=== PATIENT | female | born 1940 | race Caucasian/White ===

== ENCOUNTER → 2023-12-16 07:18 | Outpatient (REF) | payer OTHER, SELFPAY ==
[2023-12-16 08:59] LABS: ALT (SGPT) 18 U/L (0-35); AST (SGOT) 21 U/L (14-36); Albumin 4.1 g/dl (3.5-5.0); Alkaline Phosphatase 85 U/L (38-126); Blood Urea Nitrogen 18 mg/dl (7-17); Calcium 9.6 mg/dl (8.4-10.2); Carbon Dioxide 31 mmol/L (22-30); Chloride 105 mmol/L (98-107); Glucose 124 mg/dl (70-99); HDL Cholesterol 62 mg/dl; LDL Cholesterol, Calculated 123 mg/dl; Potassium 4.4 mmol/L (3.5-5.1); Sodium 138 mmol/L (135-145); Total Cholesterol 214 mg/dl (50-199); Triglyceride 146 mg/dl (10-149); Very Low Density Lipoprotein 29 mg/dl (0-30); eGFR > 60.00
[2023-12-16 09:21] LABS: Microalbumin, Random Urine < 0.6 mg/dl (0.6-1.7)
[2023-12-16 09:31] LABS: Glycohemoglobin (HgbA1c) 6.5 % (4.0-5.6)
== END ==
LOC: REG 07:18
PROVIDERS: ATTENDING PHYSICIAN Nurse Practitioner Adult Health
DX: E78.2 Mixed hyperlipidemia (principal); I10 Essential (primary) hypertension; E11.9 Type 2 diabetes mellitus without complications
CPT/HCPCS: 36415; 80053; 80061; 82043; 83036

== ENCOUNTER → 2024-05-23 08:09 | Outpatient (REF) | payer OTHER, SELFPAY | LOC: WDC 08:09 | PROVIDERS: ATTENDING PHYSICIAN Nurse Practitioner Adult Health | DX: Z12.31 Encounter for screening mammogram for malignant neoplasm of breast (principal) | CPT/HCPCS: 77063; 77067 ==

== ENCOUNTER → 2024-06-15 07:19 | Outpatient (REF) | payer OTHER, SELFPAY ==
[2024-06-15 10:01] LABS: ALT (SGPT) 18 U/L (0-35); AST (SGOT) 21 U/L (14-36); Albumin 4.3 g/dl (3.5-5.0); Alkaline Phosphatase 75 U/L (38-126); Blood Urea Nitrogen 21 mg/dl (7-17); Calcium 9.5 mg/dl (8.4-10.2); Carbon Dioxide 28 mmol/L (22-30); Chloride 102 mmol/L (98-107); Glucose 137 mg/dl (70-99); HDL Cholesterol 68 mg/dl; LDL Cholesterol, Calculated 97 mg/dl; Potassium 4.6 mmol/L (3.5-5.1); Sodium 142 mmol/L (135-145); Total Bilirubin 1.3 mg/dl (0.2-1.3); Total Cholesterol 185 mg/dl (50-199); Triglyceride 100 mg/dl (10-149); Very Low Density Lipoprotein 20 mg/dl (0-30); eGFR > 60.00
[2024-06-15 10:22] LABS: Glycohemoglobin (HgbA1c) 6.3 % (4.0-5.6)
== END ==
LOC: REG 07:19
PROVIDERS: ATTENDING PHYSICIAN Nurse Practitioner Adult Health
DX: E78.2 Mixed hyperlipidemia (principal); I10 Essential (primary) hypertension; E11.9 Type 2 diabetes mellitus without complications
CPT/HCPCS: 36415; 80053; 80061; 83036

== ENCOUNTER 2024-12-24 13:42 | Inpatient (IN) | payer OTHER, SELFPAY ==
[2024-12-24] VITALS (12 sets, daily range): BP systolic 128–218; BP diastolic 80–107; BMI 27.1; BMI 26.4
--- NOTE | 2024-12-24 08:53 | EDRN ---
Dr. Teixeira in room w/ pt.
--- NOTE | 2024-12-24 08:59 | ED.GENMED ---
History of Present Illness
General
Chief Complaint: Breathing Problem
Time Seen by Provider: 12/24/24 08:51
History of Present Illness
History of Present Illness:
Patient is a 84-year-old woman with remote history of breast cancer in remission, hypertension, hyperlipidemia presenting to the emergency department with shortness of breath. Patient states for the past 2 weeks she has had intermittent feeling of
chest tightness. No obvious triggers. Is not exertional. No chest pain. Position does not affected. No recent illnesses but she does state she is been having some chills and congestion. No sick contacts. No history of asthma. No smoking
history. No hemoptysis leg swelling long car rides plane rides or history of blood clots she has never had this feeling before. She states that it is intermittent and lasts a few breaths and then goes away. She did almost go the whole day
yesterday without any of the symptoms.
Past History
Past History
ED Past Medical History: Cancer (left breast in '), HTN and Hypercholesterolemia
ED Past Surgical History: Gynecological (left lumpectomy)
Social History
Tobacco: Non-smoker
Alcohol: None
Drug: None
Living: alone
Phy Exam
Physical Exam
Physical Exam:
GENERAL: in no acute distress
HEENT: normocephalic, extraocular movements intact, moist oral mucosa
NECK: normal inspection
RESPIRATORY: no respiratory distress, clear to auscultation bilaterally
CARDIOVASCULAR: regular rate and rhythm
ABDOMEN/: soft, non-distended, non-tender to palpation, no rebound or guarding
EXTREMITIES: non-tender, no edema/swelling
NEUROLOGIC: awake and alert, moves all extremities
SKIN: warm
Scores
Heart Failure Risk
Heart Failure Risk Score: Not Applicable
Course
Orders/Labs/Results
Orders:
Orders
12/24/24 08:39
EKG [Electrocardiogram (*1)] Urgent
Reason for Study: Shortness of Breath
EKG- Treatment ONCE
12/24/24 09:12
COVID-19 Antigen Urgent
Source: Nasal Swab
Complete Blood Count/With Diff Urgent
Comprehensive Metabolic Panel Urgent
D-Dimer Urgent
Troponin I Urgent
Influenza A+B Rapid Molecular Urgent
LAVONNE Source: Nasal Swab
Specimen Description:
12/24/24 09:53
CT Chest PE Study Urgent
Comment:
Reason For Exam: positive dimer
12/24/24 11:41
PTT Urgent
Comment: Obtain baseline before beginning heparin infusion if not already collected
Heparin 6,100 units IV NOW STA
Pharmacy Request to Place See Dose Instructions PO NOW STA
Discontinue all Active Warfarin orders?: Yes
Nursing to Place Non Medication Order As Directed
Physician Order: PTT 6 hours after initial start of Heparin infusion
12/24/24 11:45
Heparin 90363 Units/250 ml 25,000 units in 250 ml IV PER PROTOCOL
Weight to be used for heparin protocol in kilograms (kg):: 76.1
Protocol:: DVT/PE
PTT Goal Range to be used:: PTT 73 to 111 seconds
Order type:: Initial
INITIAL Infusion Dose (UNITS/KG/hr) & then follow protocol:: 18 units/kg/hr
Infusion Dose in UNITS/hr & then follow protocol (UNITS/hr):: 1,400
INFUSION RATE in mL/hr & then follow protocol (mL/hr):: 14
For DVT/PE algorithm, re-bolus for low PTT?: Yes
PTT less than or equal to 64 seconds:: Re-bolus 80 units/kg (max 10,000units). Increase by 300 units/hr
(+ 3mL/hr)
PTT 64.1 to 72.9 seconds:: Re-bolus 40 units/kg (max 5,000 units). Increase by 200 units/hr
(+ 2mL/hr)
PTT 73 to 111 seconds:: Target Range. No change in rate.
PTT 111.1 to 130.9 seconds:: Decrease rate by 200 units/hr (- 2 mL/hr)
PTT 131 to 199.9 seconds:: HOLD for 1 hr. Then decrease by 200 units/hr (- 2mL/hr)
PTT greater than or equal to 200 seconds:: HOLD for 2 hrs & Notify Provider. Then decrease by 300 units/hr
(- 3mL/hr)
Lab follow-up:: Each change, PTT q6h until 2 consecutive are therapeutic. Then
PTT daily.
12/24/24 12:[address] See Dose Instructions IV DIRECTED
Abnormal Lab Results
12/24/24
09:12
Abs Immat Gran (auto) 0.1 H 10^3/uL
(0-0.05)
Absolute Neuts (auto) 6.7 H 10^3/uL
(1.4-6.5)
Absolute Lymphs (auto) 1.1 L 10^3/uL
(1.2-3.4)
Immature Gran % 0.6 H %
(0-0.5)
Neutrophils % 78.3 H %
(42.2-75.2)
Lymphocytes % 12.4 L %
(20.5-51.1)
D-Dimer 0.98 H ug/mlFEU
(0.00-0.50)
Glucose 108 H mg/dl
(70-99)
12/24/24 09:12
12/24/24 09:12
Vital Signs
Initial and Last Documented VS:
Initial Vital Signs
Temp Pulse Resp BP Pulse Ox
97.5 F 86 22 218/107 96
12/24/24 08:33 12/24/24 08:33 12/24/24 08:33 12/24/24 08:33 12/24/24 08:33
Last Documented Vital Signs
Temp Pulse Resp BP Pulse Ox
97.5 F 78 19 172/89 95
12/24/24 08:33 12/24/24 11:30 12/24/24 11:30 12/24/24 11:00 12/24/24 11:30
MDM/Problems Addressed
Differential Diagnosis Includes:
Patient is a 84-year-old woman presenting to the emergency department with intermittent shortness of breath for the past 2 weeks with associated congestion and chills. Vitals are initially notable for hypertension and exam does show clear breath
sounds. The patient states he is currently not having an attack. Differential is broad but consists of PNA, malignancy, ACS. Considered PE. Will check blood work including dimer. Will obtain chest x-ray. EKG obtained, interpretation is normal
sinus rhythm.
*Critical Care Note
Total Time (30-74mins, 75-104mins- exclusive of procedures): Not Applicable
Update Note
Update Note:
Blood work notable for elevated dimer. Will proceed with CT PE.
CT PE per my interpretation with left-sided pleural effusion no saddle embolus. I did receive a critical call from radiology she does have right lower lobe pulmonary embolism with no findings of right heart strain. she also has bilateral nodules.
Patient remains hemodynamically stable. Will start heparin. Discussed with hospitalist who accepted patient to their service
ED Attending Note
-
Portions of this chart may have been created with voice recognition software.� Occasional wrong word or��sound alike� substitutions may have occurred due to the inherent limitations of voice recognition software.
Discharge Plan
Departure
Patient Disposition: Admit
Date of Disposition: 12/24/24
Time of Disposition: 11:49
Presentation/result/management discussed w/ accepting MD/DO: Hospitalist
Discharge Problem:
Pulmonary embolism
Prescriptions:
No Action
atorvastatin 20 MG tablet
20 mg PO QPM
aspirin 81 MG tablet,delayed release (DR/EC)
81 mg PO DAILY Qty: 30 0RF
acetaminophen [Tylenol] 325 mg Tablet
650 mg PO DAILYPRN PRN (Reason: mild pain)
carvedilol [Coreg] 12.5 mg Tablet
12.5 mg PO BID
cholecalciferol (vitamin D3) [Vitamin D3] 25 mcg (1,000 unit) Tablet
25 mcg PO DAILY
Referrals:
Teodoro Orlando MD [Family Provider] -
Interventions
Interventions:
*Risk Screen - Suicide Last Done: 12/24/24 09:10
*General Assessment Last Done: 12/24/24 09:10
*Neglect/Abuse Screening Last Done: 12/24/24 09:10
*ED- Fall Risk Assessment Last Done: 12/24/24 09:10
*ED COVID-19 Vaccine History Last Done: 12/24/24 09:10
ED- Cardiac Assessment Last Done: 12/24/24 09:10
ED- Pulmonary Assessment Last Done: 12/24/24 09:10
Discharge Date and Time
Print Language: GREENLANDIC
[2024-12-24 09:31] LABS: % Basophils 0.7 % (0-2); % Eosinophils 1.8 % (0-6); % Immature Granulocytes 0.6 % (0-0.5); % Lymphocytes 12.4 % (20.5-51.1); % Monocytes 6.2 % (1.7-9.3); % Neutrophils 78.3 % (42.2-75.2); Absolute Basophils 0.1 10^3/uL (0-0.2); Absolute Eosinophils 0.2 10^3/uL (0-0.7); Absolute Immature Granulocytes 0.1 10^3/uL (0-0.05); Absolute Lymphocytes 1.1 10^3/uL (1.2-3.4); Absolute Monocytes 0.5 10^3/uL (0.1-0.6); Absolute Neutrophils 6.7 10^3/uL (1.4-6.5); Hematocrit 42.3 % (37.0-47.0); Hemoglobin 14.5 g/dL (12.0-16.0); Mean Corp Hgb Conc. 34.3 g/dL (33.0-37.0); Mean Corpuscular Hgb 29.7 pg (27.0-31.0); Mean Corpuscular Volume 86.7 fL (81.0-99.0); Mean Platelet Volume 10.2 fL (7.4-10.4); Nucleated Red Blood Cells % 0 %; Platelet Count 299 10^3/uL (130-400); Red Blood Cell Count 4.88 10^6/uL (4.20-5.40); Red Cell Dist. Width 11.5 % (11.5-14.5); White Blood Cell Count 8.6 10^3/uL (4.8-10.8)
[2024-12-24 09:47] LABS: ALT (SGPT) 24 U/L (0-35); AST (SGOT) 19 U/L (14-36); Albumin 3.8 g/dl (3.5-5.0); Alkaline Phosphatase 90 U/L (38-126); Blood Urea Nitrogen 15 mg/dl (7-17); Calcium 9.8 mg/dl (8.4-10.2); Carbon Dioxide 30 mmol/L (22-30); Chloride 105 mmol/L (98-107); Estimated Creatinine Clearance 58 ml/min; Glucose 108 mg/dl (70-99); Potassium 4.4 mmol/L (3.5-5.1); Sodium 142 mmol/L (135-145); Total Bilirubin 0.8 mg/dl (0.2-1.3); Total Protein 6.8 g/dl (6.3-8.2); eGFR > 60.00
[2024-12-24 09:48] LABS: D-Dimer 0.98 ug/mlFEU (0.00-0.50)
[2024-12-24 09:55] LABS: Troponin I < 0.012 ng/ml
[2024-12-24 10:01] LABS: COVID-19 Antigen Negative (Negative)
--- NOTE | 2024-12-24 11:44 | EDRN ---
Dr. Teixeira in room w/pt at this time.
--- NOTE | 2024-12-24 11:53 | EDRN ---
Pharmacy called for heparin infusion order at this time.
--- NOTE | 2024-12-24 12:10 | EDRN ---
Dr. Martinez in room w/ pt.
--- NOTE | 2024-12-24 12:16 | HPS.HSE ---
Family Physician
-
Family Physician: Sunil Orlando
Chief Complaint
-
shortness of breath
History of Present Illness
84-year-old female past medical history of left breast cancer status post lumpectomy in remission, hypertension, hyperlipidemia, SVT, presenting with shortness of breath. The past 2 weeks she has been having intermittent chest tightness sometimes
in her back as well. Not exertional. No obvious triggers. She has slight cough.. No sick contacts. Denies any leg swelling, recent immobility, long car rides or flights, history of blood clots. Does sometimes have some aches in her left leg.
She checks her blood pressure every couple of days and her blood pressure is usually under 130 but sometimes up to 160.
Denies smoking. Denies alcohol use.
Medical History
Past Medical History
Past Medical History: Reports Other ( left breast cancer status post lumpectomy in remission, hypertension, hyperlipidemia, SVT)
Past Surgical History: Reports None
Social History
Tobacco: Non-smoker
Alcohol: None
Drug: None
Family History
Family History: Not pertinent
Allergies / Home Medications
Allergies reflects when Allergies were last updated in [employer].
Home Medications with original date entered in [employer]
Allergy/Medication List:
Allergies
Allergy/AdvReac Type Severity Reaction Status Date / Time
No Known Allergies Allergy Verified 02/04/22 15:47
Home Medications
atorvastatin 20 mg tablet 20 mg PO QPM 11/26/12
aspirin 81 mg tablet,delayed release 81 mg PO DAILY #30 tabs 02/06/22
acetaminophen 325 mg tablet (Tylenol) 650 mg PO DAILYPRN PRN mild pain 12/24/24
carvedilol 12.5 mg tablet (Coreg) 12.5 mg PO BID 12/24/24
cholecalciferol (vitamin D3) 25 mcg (1,000 unit) tablet (Vitamin D3) 25 mcg PO DAILY 12/24/24
Review of Systems
-
History Source: Patient
A 12 point ROS was completed and negative except as noted: Yes
Constitutional: Reports No Symptoms
EENT: Reports No Symptoms
Respiratory: Reports See HPI
Cardiac: Reports See HPI
Abdomen/GI: Reports No Symptoms
: Reports No Symptoms
Musculoskeletal: Reports No Symptoms
Skin: Reports No Symptoms
Neurological: Reports No Symptoms
Endocrine: Reports No Symptoms
Hematologic/Lymphatic: Reports No Symptoms
Psych: Reports No Symptoms
Physical Exam
Vital Signs
Vital Signs
Temp Pulse Resp BP Pulse Ox
97.5 F 78 19 172/89 95
12/24/24 08:33 12/24/24 11:30 12/24/24 11:30 12/24/24 11:00 12/24/24 11:30
Physical Exam
General: Well Developed, Well Nourished and No Apparent Distress
HEENT: NormoCephalic, Moist mucous membranes and Atraumatic
Respiratory: Clear
Cardiac: S1/S2 and Regular Rhythm; No Murmur or Rub
GI: Soft, Non Tender, Non Distended and Normal Bowel Sounds; No Organomegaly
Rectal: Deferred by Provider
Musculoskeletal: No Clubbing, No Cyanosis and No Edema
Skin: No Rash
Neuro: Nonfocal/grossly intact
Laboratory Results
-
12/24/24 09:12
12/24/24 09:12
Laboratory Results
Total Bilirubin 0.8 mg/dl (0.2-1.3) 12/24/24 09:12
AST 19 U/L (14-36) 12/24/24 09:12
ALT 24 U/L (0-35) 12/24/24 09:12
Alkaline Phosphatase 90 U/L (38-126) 12/24/24 09:12
Troponin I < 0.012 ng/ml 12/24/24 09:12
Data Reviewed
-
Lab Data: Labs Reviewed by me
Old Records: Reviewed
Impression/Plan
-
IMPRESSION:
PLAN:
# Right lower lobe pulmonary embolism with likely pulmonary infarct likely related to breast cancer history
- CT PE shows pulmonary embolism predominantly right lower lobe branches, small left pleural effusion with left lower lobe subsegmental atelectasis, several small bilateral predominantly subpleural/peripheral nodular opacities likely atelectasis
versus pulmonary infarct
- Heparin drip
- Check venous ultrasound, echo
- Hold aspirin while on anticoagulation
Hypertensive urgency
- Continue Coreg
- As needed hydralazine
Left breast cancer status post lumpectomy
- In remission for several years
History of SVT
Hyperlipidemia
- Continue statin
DNR/DNI
DVT prophylaxis�heparin drip
Regular diet
[2024-12-24] MEDS: HEPARIN 6100 UNITS IV (12:23)
[2024-12-24] MEDS: HEPARIN 25000 UNITS/250 ML IV (12:25)
[2024-12-24 12:35] LABS: APTT 28.1 Sec (23.4-35.0)
[2024-12-24] MEDS: APRESOLINE 5 MG IV (14:46)
[2024-12-24 17:26] LABS: Troponin I < 0.012 ng/ml
[2024-12-24] MEDS: LIPITOR 20 MG PO (18:08)
[2024-12-24] MEDS: APRESOLINE 10 MG IV (18:26)
--- NOTE | 2024-12-24 18:35 | PTCARENOTE ---
Addendum entered by Corrine John RN 12/24/24 19:19:
Pt does not have advanced directive. When asked during admission questions, pt stated that she 'wouldn't want all that' in reference to CPR. MD notified that pt is thinking about changing code status.
Original Note:
Pt received from ED. Walked to bed with minimal assistance from stretcher to 317-2. Heparin drip infusing @14 mls/hr. Pt SOB with exertion. BP initially elevated on admission 180/99. PRN 5mg IV hydralazine administered. BP rechecked at 189/103. MD
notified. Order changed to 10mg IV hydralazine PRN. MD ordered to give now. Medication administered. Pt is AAOx3 and very pleasant, resting comfortably in bed. Visitor @bedside. Will continue to monitor.
[2024-12-24 18:38] LABS: APTT 134.1 Sec (23.4-35.0)
[2024-12-24] MEDS: COREG 12.5 MG PO (20:47)
[2024-12-24 22:42] LABS: Troponin I < 0.012 ng/ml
[2024-12-25 02:45] LABS: APTT 61.6 Sec (23.4-35.0)
[2024-12-25 03:00] VITALS: BP 160/78
[2024-12-25 03:08] LABS: Troponin I < 0.012 ng/ml
[2024-12-25] MEDS: HEPARIN 6100 UNITS IV (03:13)
--- NOTE | 2024-12-25 07:19 | W.PN.HOSP.TC ---
Today's Communication/Plan
-
Continue Heparin Drip
Case Management pricing for Eliquis
Assessment / Plan
Assessment / Plan
Physical Exam
General: Well Developed, Well Nourished and No Apparent Distress
HEENT: NormoCephalic, Moist mucous membranes and Atraumatic
Respiratory: Clear
Cardiac: S1/S2 and Regular Rhythm
GI: Soft, Non Tender, Non Distended and Normal Bowel Sounds
Musculoskeletal: No Cyanosis and No Edema
Skin: Warm. Dry.
Neuro: AAOx3. Nonfocal/grossly intact
Assessment/Plan
84-year-old female past medical history of left breast cancer status post lumpectomy in remission, hypertension, hyperlipidemia, SVT who presented with shortness of breath. The past 2 weeks she had been having intermittent chest tightness sometimes
in her back as well. Not exertional. No obvious triggers. Slight cough. No sick contacts. Denied any leg swelling, recent immobility, long car rides or flights, history of blood clots. Does sometimes have some aches in her left leg.
# Right lower lobe pulmonary embolism with likely pulmonary infarct likely related to breast cancer history
- CT PE shows pulmonary embolism predominantly right lower lobe branches, small left pleural effusion with left lower lobe subsegmental atelectasis, several small bilateral predominantly subpleural/peripheral nodular opacities likely atelectasis
versus pulmonary infarct
- Continue Heparin Drip
- Venous ultrasound with no DVT
- Hold aspirin while on anticoagulation
#Several small bilateral predominantly subpleural/peripheral nodular opacities, largest measuring 1.9 cm in the left upper lobe
-Malignancy?
-Consulted pulmonary
Hypertensive urgency
- Continue Coreg
- As needed hydralazine
Left breast cancer status post lumpectomy
- In remission for several years
History of SVT
Hyperlipidemia
- Continue statin
DNR/DNI
DVT prophylaxis�heparin drip
Regular diet
Anticipated Discharge: 24 - 48 hours
Subjective/Interval History
-
Date of Service: December 25, 2024
Patient was seen and examined. She reported feeling better, denied any new symptoms or complaints.
Objective Data
-
Labs:
Laboratory Results
12/25/24 12/25/24 12/25/24
02:08 06:00 09:20
WBC Pending
Hgb Pending
Hct Pending
Plt Count Pending
APTT 61.6 H Pending
Sodium Pending
Potassium Pending
Chloride Pending
Carbon Dioxide Pending
BUN Pending
Creatinine Pending
Glucose Pending
Calcium Pending
Total Bilirubin Pending
AST Pending
ALT Pending
Alkaline Phosphatase Pending
Vital Signs:
Vital Signs
Temp Pulse Resp BP Pulse Ox
98.1 F 75 18 160/78 93
12/25/24 03:00 12/25/24 03:00 12/25/24 03:00 12/25/24 03:00 12/25/24 03:00
I&O
12/24/24 12/25/24 12/26/24
06:59 06:59 06:59
Intake Total 720 / 720 350 / 350
Balance 720 / 720 350 / 350
[2024-12-25 07:29] VITALS: BP 158/85
[2024-12-25] MEDS: HEPARIN 25000 UNITS/250 ML IV (08:46)
[2024-12-25] MEDS: COREG 12.5 MG PO ×2 (08:51→21:51)
[2024-12-25] MEDS: VITAMIN D3 (cholecalciferol) 25 MCG PO (08:53)
[2024-12-25 09:33] LABS: % Basophils 0.7 % (0-2); % Eosinophils 0.7 % (0-6); % Immature Granulocytes 0.5 % (0-0.5); % Lymphocytes 16.1 % (20.5-51.1); % Monocytes 5.7 % (1.7-9.3); % Neutrophils 76.3 % (42.2-75.2); Absolute Basophils 0.1 10^3/uL (0-0.2); Absolute Eosinophils 0.1 10^3/uL (0-0.7); Absolute Lymphocytes 1.2 10^3/uL (1.2-3.4); Absolute Monocytes 0.4 10^3/uL (0.1-0.6); Absolute Neutrophils 5.8 10^3/uL (1.4-6.5); Hematocrit 42.8 % (37.0-47.0); Hemoglobin 14.9 g/dL (12.0-16.0); Mean Corp Hgb Conc. 34.8 g/dL (33.0-37.0); Mean Corpuscular Hgb 30.1 pg (27.0-31.0); Mean Corpuscular Volume 86.5 fL (81.0-99.0); Mean Platelet Volume 9.9 fL (7.4-10.4); Nucleated Red Blood Cells % 0 %; Platelet Count 305 10^3/uL (130-400); Red Blood Cell Count 4.95 10^6/uL (4.20-5.40); Red Cell Dist. Width 11.9 % (11.5-14.5); White Blood Cell Count 7.5 10^3/uL (4.8-10.8)
[2024-12-25 09:46] LABS: APTT 147.7 Sec (23.4-35.0)
[2024-12-25 09:52] LABS: ALT (SGPT) 21 U/L (0-35); AST (SGOT) 18 U/L (14-36); Albumin 4.1 g/dl (3.5-5.0); Alkaline Phosphatase 104 U/L (38-126); Blood Urea Nitrogen 15 mg/dl (7-17); Calcium 9.3 mg/dl (8.4-10.2); Carbon Dioxide 27 mmol/L (22-30); Chloride 105 mmol/L (98-107); Estimated Creatinine Clearance 58 ml/min; Glucose 145 mg/dl (70-99); Potassium 4.1 mmol/L (3.5-5.1); Sodium 141 mmol/L (135-145); Total Bilirubin 0.9 mg/dl (0.2-1.3); Total Protein 7.2 g/dl (6.3-8.2); eGFR > 60.00
--- NOTE | 2024-12-25 11:15 | CM ---
Addendum entered by Meghan Louis 12/25/24 16:31:
CM consult for pricing of Eliquis
Called [employer] [facility]/member [facility] [phone] spoke with Laura
stated she needed to call the patient before giving cost to CM.
Await return call from Laura for pricing
Also called [facility] & pharmacist would not give cost without script
Original Note:
Patient seen at bedside
IA completed
Dx: PE
on Heparin gtt
PMH: left breast cancer lumpectomy in remission, hypertension, hyperlipidemia, SVT,
Lives alone in a 2 story home, 3 steps to enter, flight of stairs bed/bath
PLOF: independent, uses cane outside
DME: cane
Denies VN/has had outpatient therapy at in past
PCP: Sunil Orlando
Pharmacy: [facility], [place]
PLAN: home, anticipate VN
[2024-12-25 11:30] VITALS: BP 155/74
[2024-12-25 15:41] VITALS: BP 162/88
[2024-12-25] MEDS: LIPITOR 20 MG PO (17:17)
[2024-12-25 17:42] LABS: APTT 77.4 Sec (23.4-35.0)
[2024-12-25 19:15] VITALS: BP 137/89
[2024-12-25 23:55] VITALS: BP 139/71
[2024-12-26] VITALS (7 sets, daily range): BP systolic 133–178; BP diastolic 71–98
[2024-12-26 00:09] LABS: APTT 60.9 Sec (23.4-35.0)
[2024-12-26] MEDS: HEPARIN 6100 UNITS IV (00:47)
[2024-12-26] MEDS: HEPARIN 25000 UNITS/250 ML IV (04:46)
[2024-12-26 07:26] LABS: Hematocrit 41.9 % (37.0-47.0); Hemoglobin 14.7 g/dL (12.0-16.0); Mean Corp Hgb Conc. 35.1 g/dL (33.0-37.0); Mean Corpuscular Hgb 29.8 pg (27.0-31.0); Mean Platelet Volume 10.8 fL (7.4-10.4); Platelet Count 246 10^3/uL (130-400); Red Blood Cell Count 4.93 10^6/uL (4.20-5.40); Red Cell Dist. Width 11.9 % (11.5-14.5); White Blood Cell Count 7.2 10^3/uL (4.8-10.8)
[2024-12-26 08:10] LABS: Blood Urea Nitrogen 21 mg/dl (7-17); Calcium 9.5 mg/dl (8.4-10.2); Carbon Dioxide 25 mmol/L (22-30); Chloride 108 mmol/L (98-107); Estimated Creatinine Clearance 68 ml/min; Glucose 147 mg/dl (70-99); Potassium 4.7 mmol/L (3.5-5.1); Sodium 141 mmol/L (135-145); eGFR > 60.00
[2024-12-26 08:50] LABS: APTT 187.9 Sec (23.4-35.0)
[2024-12-26] MEDS: COREG 12.5 MG PO (09:58)
[2024-12-26] MEDS: VITAMIN D3 (cholecalciferol) 25 MCG PO (09:59)
--- NOTE | 2024-12-26 10:30 | CM ---
Addendum entered by Meghan Louis 12/26/24 15:44:
Patient seen by PT no needs
PLAN: home no needs
friend to transport
Original Note:
spoke with patient regarding Eliquis & CM calling [employer] ins. & they were unable to give cost to CM
coupons given to patient & brochure coverage information assistance
spoke with hospitalist
IMM explained & signed. In chart
PLAN: PT eval pending
--- NOTE | 2024-12-26 10:33 | PTCARENOTE ---
Heparin restarted at 1400 units at 1030. Repeat PTT for 1630
--- NOTE | 2024-12-26 12:47 | W.PN.HOSP.TC ---
Today's Communication/Plan
-
Discharge today
Assessment / Plan
Assessment / Plan
Physical Exam
General: Well Developed, Well Nourished and No Apparent Distress
HEENT: NormoCephalic, Moist mucous membranes and Atraumatic
Respiratory: Clear
Cardiac: S1/S2 and Regular Rhythm
GI: Soft, Non Tender, Non Distended and Normal Bowel Sounds
Musculoskeletal: No Cyanosis and No Edema
Skin: Warm. Dry.
Neuro: AAOx3. Nonfocal/grossly intact
Assessment/Plan
84-year-old female past medical history of left breast cancer status post lumpectomy in remission, hypertension, hyperlipidemia, SVT who presented with shortness of breath. The past 2 weeks she had been having intermittent chest tightness sometimes
in her back as well. Not exertional. No obvious triggers. Slight cough. No sick contacts. Denied any leg swelling, recent immobility, long car rides or flights, history of blood clots. Does sometimes have some aches in her left leg.
# Right lower lobe pulmonary embolism -- seemingly unprovoked -- with likely pulmonary infarct likely with risk factor being breast cancer history
# Left hemidiaphragm elevation
# Left upper lobe opacity-unclear if this is a pulmonary nodule versus a pulmonary infarct
- CT PE shows pulmonary embolism predominantly right lower lobe branches, small left pleural effusion with left lower lobe subsegmental atelectasis, several small bilateral predominantly subpleural/peripheral nodular opacities likely atelectasis
versus pulmonary infarct
- Continue Heparin Drip
- On discharge, will do Eliquis
- Venous ultrasound with no DVT
- Hold aspirin while on anticoagulation -- discuss with your primary care physician if an when to resume the Aspirin
- Follow-up echocardiogram outpatient
- Pulmonary follow-up/oncology follow-up; PET scan may be necessary -- Pulmonary follow-up in 2 weeks
#Several small bilateral predominantly subpleural/peripheral nodular opacities, largest measuring 1.9 cm in the left upper lobe
-Malignancy?
-Consulted pulmonary
#Hypertensive urgency
- Continue Coreg
- As needed hydralazine
#History of breast cancer status postlumpectomy in remission. 12 years ago. Considered cured.
He was seen by Dr. Roman in the past and discharged after 10 years
#Left breast cancer status post lumpectomy
- In remission for several years
#History of SVT
#Hyperlipidemia
- Continue statin
DNR/DNI
DVT prophylaxis�heparin drip
Regular diet
More than 30 minutes spent in discharge including
Final examination of the patient
Summarizing hospital stay
Instructions for continuing care to all relevant caregivers
Preparation of discharge records, prescriptions, and referral forms
Total time spent (in minutes): 39
Anticipated Discharge: Today
Subjective/Interval History
-
Date of Service: December 26, 2024
Patient was seen and examined. She denied any chest pain, shortness of breath or any other symptoms or complaints.
Objective Data
-
Labs:
Laboratory Results
12/26/24 12/26/24
07:05 16:30
WBC 7.2
Hgb 14.7
Hct 41.9
Plt Count 246
APTT 187.9 H* Pending
Sodium 141
Potassium 4.7
Chloride 108 H
Carbon Dioxide 25
BUN 21 H
Creatinine 0.6
Glucose 147 H
Calcium 9.5
Vital Signs:
Vital Signs
Temp Pulse Resp BP Pulse Ox
98.1 F 73 18 135/75 94
12/26/24 11:33 12/26/24 11:33 12/26/24 11:33 12/26/24 11:33 12/26/24 11:33
I&O
12/25/24 12/26/24 12/27/24
06:59 06:59 06:59
Intake Total 720 / 720 700 / 700
Balance 720 / 720 700 / 700
--- NOTE | 2024-12-26 13:03 | CON.PUL ---
Consultation
Consultation Request
Date/Time Consultation Requested: 12/26/2024
Date/Time Consultation Performed: 12/26/2024
Requesting Provider: Dr. White
Performing Provider: Dr. Rajat Ngo
Reason for Consultation: Pulmonary embolism
Medical History
-
Chief Complaint: Shortness of breath
History of Present Illness:
84-year-old woman with past medical history significant for left breast cancer status postlumpectomy on remission, hypertension, hyperlipidemia, SVT, presented to the emergency room complaining of shortness of breath. Symptoms started about 2 weeks
with intermittent chest tightness and back discomfort as well. Reports mild coughing. Denies symptoms suggestive of infection. Denies recent long distance travel, she has been in her usual state of health.
Denies prior history of clots.
She is a non-smoker.
CT chest demonstrated pulmonary embolism with possible associated infarct.
Pulmonary was consulted for evaluation
Past Medical History
Past Medical History: Other ( see assessment and plan)
Social History
Tobacco: Non-smoker
Alcohol: None
Drug: None
Family History
Family History: Reviewed & Not Pertinent
Allergies / Home Medications
Allergies
Allergy/AdvReac Type Severity Reaction Status Date / Time
No Known Allergies Allergy Verified 02/04/22 15:47
Home Medications
�Medication �Instructions �Recorded �Confirmed �Last Taken �Type
atorvastatin 20 mg tablet 20 mg PO QPM High Cholesterol 11/26/12 12/24/24 11/25/12 History
acetaminophen 325 mg tablet 650 mg PO DAILYPRN PRN mild pain 12/24/24 12/24/24 12/23/24 History
(Tylenol)
carvedilol 12.5 mg tablet (Coreg) 12.5 mg PO BID Blood Pressure 12/24/24 12/24/24 12/24/24 History
cholecalciferol (vitamin D3) 25 25 mcg PO DAILY Supplement 12/24/24 12/24/24 Unknown History
mcg (1,000 unit) tablet (Vitamin
D3)
aspirin 81 mg tablet,delayed 81 mg PO DAILY Blood Clot 12/25/24 12/24/24 3 Days Ago History
release Prevention/Tx ~12/21/24
Review of Systems
-
History Source: Patient
All other systems: Negative unless noted
Vitals / Labs / Diagnostic Testing
Vital Signs
Temp Pulse Resp BP Pulse Ox
98.1 F 73 18 135/75 94
12/26/24 11:33 12/26/24 11:33 12/26/24 11:33 12/26/24 11:33 12/26/24 11:33
Lab Data
12/26/24 07:05
12/26/24 07:05
Laboratory Results
12/25/24 12/25/24 12/26/24
17:23 23:49 07:05
APTT 77.4 H 60.9 H 187.9 H*
Microbiology
12/24/24 09:12 Nasal Swab Influenza Types A & B (KEN) - Final
Negative for Influenza A & B, NAAT
Negative results must be combined with clinical observations
and patient history.
Nucleic Acid Amplification test (NAAT)performed on the
[employer] NOW platform.
Diagnostic Testing:
Physical Exam
-
HEENT: Normocephalic
Cardiovascular: S1/S2
Respiratory: Non-Labored Respirations
GI: Non Distended
Neurology: AO x 3 and No Motor Deficits
Skin: Warm
General: Respiratory Distress and Comfortable
Assessment
-
84-year-old with past medical history noted. Admitted with shortness of breath. Found to have a right lower lobe pulmonary embolism. Also left upper lobe lung nodule. We were consulted for evaluation.
Patient currently asymptomatic.
Hemodynamically stable. Not on oxygen.
Acute pulmonary embolism pulmonary-similar provoked.
Risk factor breast cancer
CT chest: Right lower lobe pulmonary embolism. No evidence for RV strain.
Left hemidiaphragm elevation.
Left upper lobe opacity-unclear if this is a pulmonary nodule versus a pulmonary infarct.
Lower extremity Doppler 12/25/2024: No evidence for DVT.
Conditions present prior admission:
History of breast cancer status postlumpectomy in remission. 12 years ago. Considered cured.
He was seen by Dr. Roman in the past and discharged after 10 years
Hypertension
Hyperlipidemia
SVT
DNR/DNI
Assessment and plan:
Acute pulmonary embolism: Seemingly unprovoked.
Patient has history of breast cancer.
Hemodynamically stable
Not tachycardic
Not hypoxemic
No evidence for DVT on lower extremity Dopplers
Started on IV anticoagulation-okay to transition to oral.
Doubt any significant RV strain
- Echocardiogram has been ordered. Unlikely to guide changer at this point.
-
More concerning left upper lobe 1.9 cm pulmonary nodule. Doubt pulmonary infarct as there is no significant pulmonary embolism noted on the left.
Recommend pulmonary follow-up/oncology follow-up.
PET scan may be necessary. Will discuss in the outpatient setting.
-
Recommend short-term follow-up with pulmonary office in the next 2 weeks.
-
Okay to discharge from my perspective on anticoagulation. Likely indefinitely.
== END 2024-12-26 16:26 | disposition home or self-care (01) | DRG 176 ==
LOC: 3 WEST ACU 13:42
PROVIDERS: ADMITTING PHYSICIAN Hospitalist; ATTENDING PHYSICIAN Hospitalist; EMERGENCY PHYSICIAN Student in an Organized Health Care Education/Training Program; FAMILY PHYSICIAN Internal Medicine; OTHER PHYSICIAN Internal Medicine Critical Care Medicine
DX: I26.99 Other pulmonary embolism without acute cor pulmonale (principal); I47.10 Supraventricular tachycardia, unspecified; J98.11 Atelectasis; I16.0 Hypertensive urgency; Z66 Do not resuscitate; E78.00 Pure hypercholesterolemia, unspecified; I10 Essential (primary) hypertension; Z85.3 Personal history of malignant neoplasm of breast; Z11.52 Encounter for screening for COVID-19
CPT/HCPCS: 71275; 80048; 80053; 84484; 85025; 85027; 85379; 85730; 87502; 87811; 93005; 93306; 93970; 97162; 99285; Q9950; Q9967

== ENCOUNTER 2024-12-27 18:05 | Emergency (ER) | payer OTHER, SELFPAY ==
[2024-12-27 18:09] VITALS: BP 190/83; BMI 27.4
[2024-12-27 18:24] LABS: % Basophils 0.7 % (0-2); % Eosinophils 3.5 % (0-6); % Immature Granulocytes 0.8 % (0-0.5); % Lymphocytes 15.3 % (20.5-51.1); % Monocytes 6.6 % (1.7-9.3); % Neutrophils 73.1 % (42.2-75.2); Absolute Basophils 0.1 10^3/uL (0-0.2); Absolute Eosinophils 0.3 10^3/uL (0-0.7); Absolute Immature Granulocytes 0.1 10^3/uL (0-0.05); Absolute Lymphocytes 1.1 10^3/uL (1.2-3.4); Absolute Monocytes 0.5 10^3/uL (0.1-0.6); Absolute Neutrophils 5.2 10^3/uL (1.4-6.5); Hematocrit 39.9 % (37.0-47.0); Hemoglobin 13.9 g/dL (12.0-16.0); Mean Corp Hgb Conc. 34.8 g/dL (33.0-37.0); Mean Corpuscular Volume 86.2 fL (81.0-99.0); Mean Platelet Volume 9.8 fL (7.4-10.4); Nucleated Red Blood Cells % 0 %; Platelet Count 274 10^3/uL (130-400); Red Blood Cell Count 4.63 10^6/uL (4.20-5.40); Red Cell Dist. Width 11.9 % (11.5-14.5); White Blood Cell Count 7.1 10^3/uL (4.8-10.8)
[2024-12-27 18:40] LABS: Blood Urea Nitrogen 23 mg/dl (7-17); Calcium 9.2 mg/dl (8.4-10.2); Carbon Dioxide 27 mmol/L (22-30); Chloride 105 mmol/L (98-107); Estimated Creatinine Clearance 65 ml/min; Glucose 198 mg/dl (70-99); Sodium 138 mmol/L (135-145); eGFR > 60.00
--- NOTE | 2024-12-27 18:44 | ED.GENMED ---
History of Present Illness
General
Chief Complaint: Abdominal Symptoms
Source: patient, ambulance crew and other (Neighbor who states patient fell on the couch)
Exam Limitations: none
Time Seen by Provider: 12/27/24 18:09
Nursing documentation reviewed up to this point in time: agreed with
History of Present Illness
History of Present Illness:
84-year-old female presents emergency department due to feeling weak, dizzy and vomiting. She vomited en route, and states she now feels better. She was discharged yesterday due to a PE. She was started on Eliquis in the hospital. Denies
headache. She states she fell down on the couch.
Past History
Past History
ED Past Medical History: Cancer (left breast in ), HTN, Hypercholesterolemia and Other (Pulmonary embolism)
ED Past Surgical History: Gynecological (left lumpectomy)
Social History
Tobacco: Non-smoker
Alcohol: None
Drug: None
Living: alone
Review of Systems
Review of Systems
Allergies reviewed?: Yes
All Other Systems: Not applicable
Constitutional: Reports no symptoms
EENT: Reports no symptoms
Respiratory: Reports no symptoms
Cardiac: Reports no symptoms
ABD/GI: Reports nausea and vomiting; Denies abdominal pain
: Reports no symptoms
Musculoskeletal: Reports no symptoms
Skin: Reports no symptoms
Neurological: Reports dizzy
Endocrine: Reports no symptoms
Hematologic/Lymphatic: Reports no symptoms
Psychiatric: Reports no symptoms
Phy Exam
Physical Exam
Physical Exam:
Physical Exam
General: no apparent distress, not acutely ill
Neck: supple. no meningeal signs. normal posterior pharynx
Heart: s1/s2 regular rate and rhythm, no murmur. equal radial
pulses.
HEENT: Pupils equal round reactive to light, EOMI
Lungs: no acute respiratory distress. clear bilaterally
Abdomen: normal bowel sounds. not tender. no CVAT
Neuro: alert and oriented. no focal neurological deficits cranial nerves II through XII intact
Skin: no rash
Psychiatric: well kept. interactive and cooperative
Extremities: no edema. no calf tenderness. negative homans. good distal pulses
Course
Orders/Labs/Results
Orders:
Orders
12/27/24 18:16
Electrocardiogram (*1) Urgent
Reason for Study: Fatigue / Weakness
EKG- Treatment ONCE
12/27/24 18:17
Basic Metabolic Panel Urgent
Complete Blood Count/With Diff Urgent
Troponin I Urgent
12/27/24 18:38
CT Head W/o Iv Contrast Urgent
Comment:
Reason For Exam: dizziness, vomiting
Abnormal Lab Results
12/27/24
18:17
Abs Immat Gran (auto) 0.1 H 10^3/uL
(0-0.05)
Absolute Lymphs (auto) 1.1 L 10^3/uL
(1.2-3.4)
Immature Gran % 0.8 H %
(0-0.5)
Lymphocytes % 15.3 L %
(20.5-51.1)
BUN 23 H mg/dl
(7-17)
Glucose 198 H mg/dl
(70-99)
12/27/24 18:17
12/27/24 18:17
Vital Signs
Initial and Last Documented VS:
Initial Vital Signs
Temp Pulse Resp BP Pulse Ox
97.6 F 72 15 190/83 94
12/27/24 18:09 12/27/24 18:09 12/27/24 18:09 12/27/24 18:09 12/27/24 18:09
Last Documented Vital Signs
Temp Pulse Resp BP Pulse Ox
97.6 F 74 28 180/76 94
12/27/24 18:09 12/27/24 20:00 12/27/24 20:00 12/27/24 20:00 12/27/24 20:48
MDM/Problems Addressed
Differential Diagnosis Includes:
Intracranial hemorrhage
MDM/Problems Addressed:
84-year-old female with dizziness, likely vertigo. No signs of CVA. Patient's symptoms improved after observation in the ED.
Chronic conditions affecting care: HTN
Acute Exacerbation and/or Progression of Chronic Illness: HTN
*Radiology
Radiology exam reviewed: radiology read reviewed (CT head no acute findings)
*Pulse Oximetry
Patient hypoxic: no
*EKG
Interpreted by ED Provider?: Yes
EKG Intrepretation Date: 12/27/24
EKG Intrepretation Time: 18:25
Interpretation: abnormal
Comparison EKG: no comparison EKG present
Heart Rate: 72
Rate: normal
Rhythm: sinus
Sheldon: normal axis
Interval: normal interval
QRS Pattern: normal QRS
Ischemia: no ischemia
*Associate Attorney Interpretation
Rate: normal
Interpretation: normal
Heart Rate: 72
Rhythm: sinus
*Critical Care Note
Total Time (30-74mins, 75-104mins- exclusive of procedures): Not Applicable
Patient Management
Social determinants of health affecting care: Living situation and Strong social support
Escalation/DeEscalation of care consider admission/obs:
Admit not indicated
ED Attending Note
-
Portions of this chart may have been created with voice recognition software.� Occasional wrong word or��sound alike� substitutions may have occurred due to the inherent limitations of voice recognition software.
Discharge Plan
Departure
Patient Disposition: Home (Routine Discharge)
Date of Disposition: 12/27/24
Time of Disposition: 20:30
Patient with high blood pressure during this ER visit?: Yes
Condition: Good
Discharge Problem:
Dizziness
Instructions: Vertigo (a type of dizziness), Nausea and Vomiting, Adult (DC), BLOOD PRESSURE
Prescriptions:
New
meclizine 25 mg tablet
25 mg PO TID PRN (Reason: dizziness) Qty: 10 0RF
No Action
atorvastatin 20 MG tablet
20 mg PO QPM
carvedilol [Coreg] 12.5 mg Tablet
12.5 mg PO BID
cholecalciferol (vitamin D3) [Vitamin D3] 25 mcg (1,000 unit) Tablet
25 mcg PO DAILY
Eliquis 5 mg tablet
See Rx Instructions .ROUTE .COMPLEX Qty: 240 0RF
Rx Instructions:
10 mg BID x 7 days, followed by 5 mg BID
Referrals:
Reji Rocha DO [Family Provider] - Call in 1-3 days for appt
Interventions
Interventions:
*Risk Screen - Suicide Last Done: 12/27/24 18:09
*General Assessment Last Done: 12/27/24 18:09
*Neglect/Abuse Screening Last Done: 12/27/24 18:09
*ED- Fall Risk Assessment Last Done: 12/27/24 18:09
*ED COVID-19 Vaccine History Last Done: 12/27/24 18:09
*Nursing Disposition Last Done: 12/27/24 20:48
LP-Bdusft-Ziuclcufvp Assessment Last Done: 12/27/24 19:15
Discharge Date and Time
Discharge Date/Time: 12/27/24 20:49
Print Language: SLOVAK
[2024-12-27 18:49] LABS: Troponin I < 0.012 ng/ml
[2024-12-27 19:00] VITALS: BP 189/88
[2024-12-27 20:00] VITALS: BP 180/76
== END 2024-12-27 20:49 | disposition home or self-care (01) ==
LOC: EMR 18:05
PROVIDERS: EMERGENCY PHYSICIAN Emergency Medicine; FAMILY PHYSICIAN Student in an Organized Health Care Education/Training Program
DX: R42 Dizziness and giddiness (principal); R11.2 Nausea with vomiting, unspecified; E78.00 Pure hypercholesterolemia, unspecified; I10 Essential (primary) hypertension; Z79.01 Long term (current) use of anticoagulants; Z86.711 Personal history of pulmonary embolism
CPT/HCPCS: 99284; 70450; 80048; 84484; 85025; 93005

== ENCOUNTER → 2025-01-11 08:56 | Outpatient (REF) | payer OTHER, SELFPAY | LOC: REG 08:56 | PROVIDERS: ATTENDING PHYSICIAN Internal Medicine | DX: Z86.711 Personal history of pulmonary embolism (principal) | CPT/HCPCS: 36415; 81241 ==

== ENCOUNTER → 2025-01-22 14:17 | Outpatient (REF) | payer OTHER, SELFPAY | LOC: RAD 14:17 | PROVIDERS: ATTENDING PHYSICIAN Nurse Practitioner Adult Health; FAMILY PHYSICIAN Internal Medicine | DX: J90 Pleural effusion, not elsewhere classified (principal) | CPT/HCPCS: 76604 ==

== ENCOUNTER → 2025-01-25 08:51 | Outpatient (REF) | payer OTHER, SELFPAY | LOC: RAD 08:51 | PROVIDERS: ATTENDING PHYSICIAN Nurse Practitioner Adult Health; FAMILY PHYSICIAN Internal Medicine | DX: I26.93 Single subsegmental thrombotic pulmonary embolism without acute cor pulmonale (principal); J90 Pleural effusion, not elsewhere classified; R91.8 Other nonspecific abnormal finding of lung field; Z85.3 Personal history of malignant neoplasm of breast | CPT/HCPCS: 71250 ==

== ENCOUNTER → 2025-02-08 08:07 | Outpatient (REF) | payer OTHER, SELFPAY ==
[2025-02-08 09:35] LABS: D-Dimer < 0.27 ug/mlFEU (0.00-0.50)
[2025-02-10 01:58] LABS: Beta-2-Glycoprotein I Ab. IgG <10 SGU (<=20); Beta-2-Glycoprotein I Ab. IgM <10 SMU (<=20)
[2025-02-10 13:12] LABS: Protein S Total Antigen 132 % (63-126)
[2025-02-10 14:23] LABS: Anti-Thrombin III Activity 111 % (76-128)
[2025-02-10 17:07] LABS: Protein S Free Antigen 106 % (55-123)
[2025-02-10 17:30] LABS: Protein C, Total Antigen >95 % (63-153)
[2025-02-10 19:22] LABS: Factor 2 Activity(Prothrombin) 106 % (86-150)
[2025-02-10 23:46] LABS: Anti-Xa Qualitative Interp Present (Not Present); Anticoagulant Med Neutralizati DOAC-Stop (Not Performed); Hexagonal Phospholipid Confirm Not Performed s (<=7.9); Neutralized PTT-LA Ratio Not Performed (<=1.20); Neutralized dRVTT Screen Ratio 0.98 (<=1.20); PTT-LA Ratio 1.03 (<=1.20); Prothrombin Time 16.8 s (12.0-15.5); Thrombin Time Not Performed s (<=19.5); dRVTT 1.1 Mix Ratio Not Performed (<=1.20); dRVTT Confirmation Ratio Not Performed (<=1.20)
== END ==
LOC: REG 08:07
PROVIDERS: ATTENDING PHYSICIAN Internal Medicine Hematology & Oncology; FAMILY PHYSICIAN Internal Medicine
DX: C50.919 Malignant neoplasm of unspecified site of unspecified female breast (principal); D70.9 Neutropenia, unspecified; R11.2 Nausea with vomiting, unspecified
CPT/HCPCS: 36415; 85210; 85300; 85302; 85305; 85306; 85379; 85610; 85613; 85730; 86146; 86147

== ENCOUNTER → 2025-04-07 09:03 | Outpatient (REF) | payer OTHER, SELFPAY ==
[2025-04-07] VITALS (11 sets, daily range): BP systolic 69–192; BP diastolic 64–122
[2025-04-07 09:28] LABS: Hematocrit 43.0 % (37.0-47.0); Hemoglobin 14.5 g/dL (12.0-16.0); Mean Corp Hgb Conc. 33.7 g/dL (33.0-37.0); Mean Corpuscular Volume 87.0 fL (81.0-99.0); Nucleated Red Blood Cells % 0 %; Platelet Count 224 10^3/uL (130-400); Red Cell Dist. Width 12.6 % (11.5-14.5)
[2025-04-07 09:37] LABS: INR 1.07; PT 14.2 Sec (11.4-14.6)
== END ==
LOC: RADI 09:03
PROVIDERS: ATTENDING PHYSICIAN Internal Medicine Hematology & Oncology; FAMILY PHYSICIAN Internal Medicine; REFERRING PHYSICIAN Physician Assistant
DX: C78.02 Secondary malignant neoplasm of left lung (principal); Z85.3 Personal history of malignant neoplasm of breast
CPT/HCPCS: 32408; 36415; 71045; 85025; 85610; 88305; 88333; 88341; 88342; 88360; 99152; 99153

== ENCOUNTER → 2025-05-31 07:33 | Outpatient (REF) | payer OTHER, SELFPAY ==
[2025-06-02 17:35] LABS: CA 27-29 19.2 U/mL (<=39.0)
== END ==
LOC: REG 07:33
PROVIDERS: ATTENDING PHYSICIAN Internal Medicine Hematology & Oncology; FAMILY PHYSICIAN Internal Medicine
DX: C50.919 Malignant neoplasm of unspecified site of unspecified female breast (principal); D70.9 Neutropenia, unspecified; R11.2 Nausea with vomiting, unspecified
CPT/HCPCS: 36415; 86300

== ENCOUNTER → 2025-06-14 08:00 | Outpatient (REF) | payer OTHER, SELFPAY ==
[2025-06-14 09:13] LABS: Hematocrit 43.7 % (37.0-47.0); Hemoglobin 14.3 g/dL (12.0-16.0); Mean Corp Hgb Conc. 32.7 g/dL (33.0-37.0); Mean Corpuscular Volume 88.3 fL (81.0-99.0); Nucleated Red Blood Cells % 0 %; Platelet Count 231 10^3/uL (130-400); Red Cell Dist. Width 12.4 % (11.5-14.5)
[2025-06-14 09:36] LABS: ALT (SGPT) 22 U/L (0-35); AST (SGOT) 19 U/L (14-36); Albumin 4.1 g/dl (3.5-5.0); Alkaline Phosphatase 93 U/L (38-126); Blood Urea Nitrogen 17 mg/dl (7-17); Calcium 9.4 mg/dl (8.4-10.2); Carbon Dioxide 27 mmol/L (22-30); Chloride 107 mmol/L (98-107); Glucose 162 mg/dl (70-99); HDL Cholesterol 61 mg/dl; LDL Cholesterol, Calculated 90 mg/dl; Potassium 4.1 mmol/L (3.5-5.1); Sodium 142 mmol/L (135-145); Total Protein 6.9 g/dl (6.3-8.2); Very Low Density Lipoprotein 19 mg/dl (0-30); eGFR > 60.00
== END ==
LOC: REG 08:00
PROVIDERS: ATTENDING PHYSICIAN Internal Medicine
DX: Z00.01 Encounter for general adult medical examination with abnormal findings (principal); E11.9 Type 2 diabetes mellitus without complications; E78.2 Mixed hyperlipidemia; I10 Essential (primary) hypertension
CPT/HCPCS: 36415; 80053; 80061; 85025

== ENCOUNTER → 2025-07-05 07:47 | Outpatient (REF) | payer OTHER, SELFPAY ==
[2025-07-05 09:22] LABS: ALT (SGPT) 30 U/L (0-35); AST (SGOT) 22 U/L (14-36); Albumin 4.1 g/dl (3.5-5.0); Alkaline Phosphatase 84 U/L (38-126); Total Protein 6.9 g/dl (6.3-8.2)
[2025-07-08 03:06] LABS: CA 27-29 19.6 U/mL (<=39.0)
== END ==
LOC: REG 07:47
PROVIDERS: ATTENDING PHYSICIAN Internal Medicine Hematology & Oncology; FAMILY PHYSICIAN Internal Medicine
DX: C50.919 Malignant neoplasm of unspecified site of unspecified female breast (principal); D70.9 Neutropenia, unspecified; R11.2 Nausea with vomiting, unspecified
CPT/HCPCS: 80076; 86300

== ENCOUNTER → 2025-07-19 07:38 | Outpatient (REF) | payer OTHER, SELFPAY | LOC: RAD 07:38 | PROVIDERS: ATTENDING PHYSICIAN Internal Medicine Hematology & Oncology; FAMILY PHYSICIAN Internal Medicine | DX: C50.919 Malignant neoplasm of unspecified site of unspecified female breast (principal); D70.9 Neutropenia, unspecified; R11.2 Nausea with vomiting, unspecified | CPT/HCPCS: 71250 ==